=== PATIENT | female | born 1975 | race Caucasian/White ===

== ENCOUNTER → 2016-09-03 | Outpatient (CLI) | payer MEDICARE, BC ==
--- NOTE | ~2016-09-03 | ST ---
Unit #: [id number] #: [id number] Patient: ASHIA PAYNE [id number] [address] [address] [id number] O MR#: [id number] NAME: ASHIA PAYNE. : 1975 SEX: F STUDY DATE/TIME: 09/03/2016 UNIT: CN ROOM: STUDY DESCRIPTION: Cardiac stress test. Attending Physician: Amanda Son M.D. Referring Physician: Amanda Son M.D. Primary Care Physician: Mark Lozano M.D. CARDIOLOGY REPORT EXAM Cardiac stress test. Results included in Cardiolite imaging report. Dictated by... Vito Rojas M.D. PJR/gz TD: 09/03/2016 13:22 JOB #: [id number] CARDIOLOGY REPORT Page 1 of 1 X Vito Rojas MD CARDIOLOGY REPORT
--- NOTE | ~2016-09-03 | TH ---
Unit #: [id number] #: [id number] Patient: ASHIA PAYNE [id number] [address] [place], [place] [address] [id number] O MR#: [id number] NAME: ASHIA PAYNE. : 1975 SEX: F STUDY DATE/TIME: 09/03/2016 UNIT: CN ROOM: STUDY DESCRIPTION: Cardiolite imaging. Attending Physician: Amanda Son M.D. Referring Physician: Amanda Son M.D. Primary Care Physician: Mark Lozano M.D. CARDIOLOGY REPORT EXAM Stress nuclear and ECG combined. PROCEDURE The patient exercised on a Kyle protocol to maximal effort. The patient completed 9 minutes 59 seconds of exercise. The patient was given Technetium 99m Cardiolite 9.55 and 29.7 mCi at rest and stress respectively. Appropriate views were obtained. FINDINGS The patient's heart rate increased from 64 to 155 (86%) and blood pressure increased from 108/77 to 122/80. The patient completed 9 minutes 59 seconds of exercise. There was no chest pain, but there was typical shortness of breath noted. The rest and stress ECG demonstrated no diagnostic ST shifts, although there was 0.[address] depression in leads 2, 3, AVF, V4 through V6. Planar imaging shows no significant patient motion either at rest or stress. There is no significant lung uptake, left ventricular or right ventricular enlargement. There is mild breast attenuation artifact. Summed stress scores is zero. Gated perfusion and wall motion analysis demonstrates normal wall motion throughout the myocardium with end-diastolic volume 71 ml, ejection fraction greater than 65%. Perfusion images demonstrate intestinal artifact both at rest, less with stress, but still present. There is chest wall and breast attenuation artifact, but otherwise normal perfusion throughout the myocardium. The breast attenuation artifact is present equally at rest and stress. IMPRESSION 1. Good exercise capacity 2. Normal heart rate and blood pressure responses. 3. Normal stress ECG. 4. Normal stress nuclear study with no ischemia or infarction. 5. Normal left ventricular size and function, as well as wall motion. Dictated by... Vito Rojas M.D. [place] TD: 09/03/2016 13:14 Unit #: [id number] #: [id number] Patient: ASHIA PAYNE JOB #: [id number] CARDIOLOGY REPORT Page 1 of 1 X Vito Rojas MD CARDIOLOGY REPORT
== END | disposition home or self-care (01) ==
LOC: CNUC 08:19
DX: R07.9 Chest pain, unspecified (principal)
CPT/HCPCS: 78452; 93017; A9500